=== PATIENT | female | born 1990 | race Two or more races ===

== ENCOUNTER 2024-01-23 22:06 | Emergency (ER) | payer MEDICAID ==
[~2024-01-23] VITALS: Ht 160 cm; Wt 49.0 kg
[2024-01-23 22:16] VITALS: BP 132/90; PULSE 72; RESP 16; TEMP 98.4; O2SAT 100
[2024-01-23] MEDS ORDERED: PER5325T PO (23:31)
== END 2024-01-24 00:21 | disposition home or self-care (01) ==
LOC: ER 22:07
DX: S62.324A Displaced fracture of shaft of fourth metacarpal bone, right hand, initial encounter for closed fracture (principal); Z79.899 Other long term (current) drug therapy; X58.XXXA Exposure to other specified factors, initial encounter; Y93.89 Activity, other specified; Y92.89 Other specified places as the place of occurrence of the external cause; Y99.8 Other external cause status
CPT/HCPCS: 29125; 73130; 99283